=== PATIENT | female | born 1990 | race Caucasian/White ===

== ENCOUNTER 2017-01-20 12:55 | Emergency (ER) | payer MEDICAID ==
[~2017-01-20] VITALS: Ht 154.9 cm; Wt 79.0 kg
[2017-01-20 13:02] VITALS: Ht 154.9 cm; Wt 79.0 kg
[2017-01-20 14:17] LABS: ADD SCAN DIFF NO
[2017-01-20 14:19] LABS: BASOPHIL # 0.1 10^3/ul (0.0-0.1); BASOPHILS % 0.5 % (0.0-2.0); EOSINOPHILS # 0.1 10^3/ul (0.0-0.5); EOSINOPHILS % 0.7 % (0.0-7.0); HEMATOCRIT 37.3 % (37.0-47.0); HEMOGLOBIN 12.7 g/dl (12.0-16.0); LYMPHOCYTES % 29.4 % (15.0-51.0); MEAN PLATELET VOLUME 9.6 fl (7.4-10.4); MONOCYTES % 7.2 % (0.0-11.0); NEUTROPHIL # 8.4 10^3/ul (1.6-7.5); NEUTROPHILS % 61.9 % (39.0-77.0); PLATELET COUNT 361 10^3/UL (140-415); WHITE BLOOD COUNT 13.6 10^3/ul (4.8-10.8)
[2017-01-20 14:21] LABS: ADD UMIC YES; URINE BILIRUBIN (Dip) NEGATIVE (NEGATIVE); URINE BLOOD (Dip) 1+ (NEGATIVE); URINE COLOR LT. YELLOW (YELLOW); URINE GLUCOSE (Dip) NEGATIVE (NEGATIVE); URINE KETONES (Dip) NEGATIVE (NEGATIVE); URINE LEUKOCYTE ESTERASE (Dip) NEGATIVE (NEGATIVE); URINE NITRITE (Dip) NEGATIVE (NEGATIVE); URINE TOTAL PROTEIN (Dip) NEGATIVE (NEGATIVE); URINE UROBILINOGEN (Dip) 0.2 E.U./dL (0.1-1.0)
[2017-01-20 14:36] LABS: BACTERIA,URINE FEW
--- NOTE | 2017-01-20 14:40 | RADRPT ---
PROCEDURE: US Pelvis/OB. CLINICAL INDICATION: vaginal bleeding TECHNIQUE: Multiple sonographic images of the pelvis were obtained utilizing a transabdominal and endovaginal technique. The images were reviewed on a PACS workstation. COMPARISON: None. FINDINGS: There is a small cystic structure within the endometrium measuring 0.3 cm which would correspond to a calculated gestational age of 4 weeks and 6 days. No pole or yolk sac is yet visualized. The ovaries are normal. No abnormal adnexal masses are present. The right ovary measures 2.6 x 1.8 x 2.5 cm. The left ovary measures 2.7 x 1.4 x 2.1 cm. No significant free fluid is present within the pelvis. RPTAT: AA IMPRESSION: Possible early intrauterine at 4 weeks and 6 days. Close followup ultrasound and hCG is recommended. .Rudy Velez MD, Date Time Electronically viewed and signed by .Rudy Velez MD, on 01/20/2017 14:40 .S/
--- NOTE | 2017-01-20 15:42 | ERD ---
ER Documentation Chief Complaint Date/Time DATE: 01/20/17 TIME: 15:35 Chief Complaint PELVIC PAIN , 4 WEEKS PREG , NO VAG BLEED HPI This is a 26-year-old female that presents to the ER with pelvic cramping. Patient states that she found out she was on Monday. Patient went to the clinic on Monday and was told that nothing was seen on the ultrasound. Patient denies any vaginal bleeding. She denies any urinary frequency or dysuria. Patient denies any nausea vomiting or dizziness. A0. Her last normal menstrual period was December 09, 2016. Denies any vaginal discharge. ROS All systems reviewed and are negative except as per history of present illness. PMhx/Soc Medical and Surgical Hx: pt denies Medical Hx, pt denies Surgical Hx Hx Alcohol Use: No Hx Substance Use: No Hx Tobacco Use: No Physical Exam Vitals Vital Signs Date Time Temp Pulse Resp B/P Pulse Ox O2 Delivery O2 Flow Rate FiO2 01/20/17 13:02 97.6 90 18 123/66 100 Physical Exam GENERAL: The patient is well developed and appropriate for usual state of health , in no apparent distress. HEENT: Atraumatic. CHEST: Clear to auscultation bilaterally. There are no rales, wheezes or rhonchi. HEART: Regular rate and rhythm. No murmurs, clicks, rubs or gallops. ABDOMEN: Soft, nontender and nondistended. Good bowel sounds. No rebound or guarding. No gross peritonitis. No gross organomegaly or masses. No Graham sign or McBurney point tenderness. BACK: No midline or flank tenderness. NEURO: Alert and oriented. SKIN: The skin is warm and dry. Result Diagram: 01/20/17 1400 Results 24 hrs Laboratory Tests Test 01/20/17 14:00 Basophils # 0.110^3/ul Basophils % 0.5% Beta HCG, Quantitative 1402.8mIU/ml Eosinophils # 0.110^3/ul Eosinophils % 0.7% Hematocrit 37.3% Hemoglobin 12.7g/dl Lymphocytes # 4.010^3/ul Lymphocytes % 29.4% Mean Corpuscular Hemoglobin 31.0pg Mean Corpuscular Hemoglobin Concent 34.0g/dl Mean Corpuscular Volume 91.0fl Mean Platelet Volume 9.6fl Monocytes # 1.010^3/ul Monocytes % 7.2% Neutrophils # 8.410^3/ul Neutrophils % 61.9% Nucleated Red Blood Cells # 0.010^3/ul Nucleated Red Blood Cells % 0.0/100WBC Platelet Count 11801^3/UL Red Blood Count 4.1010^6/ul Red Cell Distribution Width 12.0% Urine Bacteria FEW Urine Bilirubin NEGATIVE Urine Clarity CLEAR Urine Color LT. YELLOW Urine Epithelial Cells MODERATE Urine Glucose NEGATIVE% Urine Hemoglobin 1+ Urine Ketones NEGATIVE Urine Leukocyte Esterase NEGATIVE Urine Microscopic RBC 5-10/HPF Urine Microscopic WBC 0-2/HPF Urine Nitrite NEGATIVE Urine Specific [place] 1.025 Urine Total Protein NEGATIVE Urine Urobilinogen 0.2 E.U./dL Urine pH 6.0 White Blood Count 13.610^3/ul Procedures/MDM Differential diagnosis: Threatened , missed , incomplete , ectopic , molar , UTI, pyelonephritis. At this time patient is possibly 4 weeks . Suspicion for ectopic is low. Patient's quantitative hCG is below 1500. She does not have any vaginal bleeding at this time. Patient is to follow-up with her PCP within 1-2 days return to ER sooner if pain continues. Patient understands and agrees with plan. Departure Diagnosis: Primary Impression: Pelvic pain during Condition: Stable Patient Instructions: : Body Changes Additional Instructions: Llame al doctor MAANA y magan valerie BURKE PARA DENTRO DE 1-2 SINGH.Dgale a la secretaria que nosotros le instruimos hacer esta burke.Avise o llame si feldman condicin se empeora antes de la burke. Regresa aqui si peor o no mejor. MADHAV TRAMMELL Jan 20, 2017 15:42
== END 2017-01-20 15:46 | disposition home or self-care (01) ==
LOC: FTE 12:55
DX: O26.891 Other specified pregnancy related conditions, first trimester (principal); R10.2 Pelvic and perineal pain
CPT/HCPCS: 36415; 76801; 76817; 81001; 81003; 84702; 85025; 86900; 86901; Z7502

== ENCOUNTER 2017-01-22 19:10 | Emergency (ER) | payer MEDICAID ==
[~2017-01-22] VITALS: Ht 157.5 cm; Wt 81.1 kg
[2017-01-22 19:24] VITALS: Ht 157.5 cm; Wt 81.1 kg
[2017-01-22 21:30] LABS: ADD SCAN DIFF NO
[2017-01-22 21:39] LABS: BASOPHIL # 0.1 10^3/ul (0.0-0.1); BASOPHILS % 0.4 % (0.0-2.0); EOSINOPHILS # 0.1 10^3/ul (0.0-0.5); EOSINOPHILS % 0.8 % (0.0-7.0); HEMATOCRIT 39.3 % (37.0-47.0); HEMOGLOBIN 13.2 g/dl (12.0-16.0); LYMPHOCYTES # 4.6 10^3/ul (0.8-2.9); LYMPHOCYTES % 28.5 % (15.0-51.0); MEAN CORPUSCULAR HEMOGLOBIN 30.6 pg (29.0-33.0); MEAN CORPUSCULAR HGB CONC 33.6 g/dl (32.0-37.0); MEAN CORPUSCULAR VOLUME 91.2 fl (82.0-101.0); MEAN PLATELET VOLUME 9.6 fl (7.4-10.4); MONOCYTES % 6.4 % (0.0-11.0); NEUTROPHIL # 10.3 10^3/ul (1.6-7.5); NEUTROPHILS % 63.6 % (39.0-77.0); PLATELET COUNT 368 10^3/UL (140-415); RED BLOOD COUNT 4.31 10^6/ul (4.20-5.40); RED CELL DISTRIBUTION WIDTH 12.1 % (11.5-14.5); WHITE BLOOD COUNT 16.2 10^3/ul (4.8-10.8)
[2017-01-22 21:46] LABS: ADD UMIC YES; URINE BILIRUBIN (Dip) NEGATIVE (NEGATIVE); URINE BLOOD (Dip) 3+ (NEGATIVE); URINE COLOR LT. YELLOW (YELLOW); URINE GLUCOSE (Dip) NEGATIVE (NEGATIVE); URINE KETONES (Dip) NEGATIVE (NEGATIVE); URINE LEUKOCYTE ESTERASE (Dip) NEGATIVE (NEGATIVE); URINE NITRITE (Dip) NEGATIVE (NEGATIVE); URINE UROBILINOGEN (Dip) 0.2 E.U./dL (0.1-1.0)
[2017-01-22 21:51] LABS: URINE TOTAL PROTEIN (Dip) NEGATIVE (NEGATIVE)
[2017-01-22 21:58] LABS: BACTERIA,URINE FEW; SQUAMOUS EPITHELIAL CELL,UR FEW
--- NOTE | 2017-01-22 22:22 | RADRPT ---
PROCEDURE: US OB. CLINICAL INDICATION: Vaginal bleeding TECHNIQUE: Transabdominal and transvaginal imaging of the pelvis was performed. Images are review ed on a high-resolution PACS workstation. COMPARISON: Ultrasound, 01/20/2017 FINDINGS: Early intrauterine gestational sac is identified. Yolk sac is seen. No pole or cardiac activity is identified at this time. Mean sac diameter is 4.8 mm, corresponding to 5 weeks 0 days gestational age. On the previous exam, mean sac diameter measured 3.4 mm. Bilateral ovaries are unremarkable. No ovarian torsion, adnexal mass or pelvic free fluid is seen. IMPRESSION: 1. Early intrauterine gestational sac, as above. Viability cannot be confirmed at this time. Cont inued sonographic follow-up is recommended. 2. No sonographic evidence of ectopic gestation is seen at this time. RPTAT: HDWR .Burke Smith MD, MD Date Time Electronically viewed and signed by .Burke Smith MD, on 01/22/2017 22:21 .R/
--- NOTE | 2017-01-22 23:12 | ERD ---
ER Documentation Chief Complaint Date/Time DATE: 01/22/17 TIME: 23:07 Chief Complaint VB and pelvic pain X 2 days, 4 weeks . HPI This is a 26-year-old female presents to the ER with vaginal bleeding and pelvic pain. This is been going on for the last 2 days. Patient was seen here 2 days ago. Patient states that the pain has gotten significantly worse. She denies any urinary frequency or dysuria. She denies any vaginal discharge. ROS 12 point review of systems was done, all negative except per HPI. PMhx/Soc Medical and Surgical Hx: pt denies Medical Hx, pt denies Surgical Hx History of Surgery: No Anesthesia Reaction: No Hx Neurological Disorder: No Hx Respiratory Disorders: No Hx Cardiac Disorders: No Hx Psychiatric Problems: No Hx Miscellaneous Medical Probl: No Hx Alcohol Use: No Hx Substance Use: No Hx Tobacco Use: No Physical Exam Vitals Vital Signs Date Time Temp Pulse Resp B/P Pulse Ox O2 Delivery O2 Flow Rate FiO2 01/22/17 19:24 98.1 87 14 129/64 100 Physical Exam GENERAL: The patient is well developed and appropriate for usual state of health , in no apparent distress. HEENT: Atraumatic. CHEST: Clear to auscultation bilaterally. There are no rales, wheezes or rhonchi. HEART: Regular rate and rhythm. No murmurs, clicks, rubs or gallops. ABDOMEN: Soft, nontender and nondistended. Good bowel sounds. No rebound or guarding. No gross peritonitis. No gross organomegaly or masses. No Graham sign or McBurney point tenderness. BACK: No midline or flank tenderness. NEURO: Alert and oriented. SKIN: There is no apparent rash or petechia. The skin is warm and dry. Result Diagram: 01/22/172114 Results 24 hrs Laboratory Tests Test 01/22/17 21:15 Basophils # 0.110^3/ul Basophils % 0.4% Beta HCG, Quantitative 1110.3mIU/ml Eosinophils # 0.110^3/ul Eosinophils % 0.8% Hematocrit 39.3% Hemoglobin 13.2g/dl Lymphocytes # 4.610^3/ul Lymphocytes % 28.5% Mean Corpuscular Hemoglobin 30.6pg Mean Corpuscular Hemoglobin Concent 33.6g/dl Mean Corpuscular Volume 91.2fl Mean Platelet Volume 9.6fl Monocytes # 1.010^3/ul Monocytes % 6.4% Neutrophils # 10.310^3/ul Neutrophils % 63.6% Nucleated Red Blood Cells # 0.010^3/ul Nucleated Red Blood Cells % 0.0/100WBC Platelet Count 35077^3/UL Red Blood Count 4.3110^6/ul Red Cell Distribution Width 12.1% Urine Bacteria FEW Urine Bilirubin NEGATIVE Urine Clarity CLEAR Urine Color LT. YELLOW Urine Glucose NEGATIVE% Urine Hemoglobin 3+ Urine Ketones NEGATIVE Urine Leukocyte Esterase NEGATIVE Urine Microscopic RBC 5-10/HPF Urine Microscopic WBC 2-5/HPF Urine Nitrite NEGATIVE Urine Specific [place] 1.010 Urine Squamous Epithelial Cells FEW Urine Total Protein NEGATIVE Urine Urobilinogen 0.2 E.U./dL Urine pH 7.0 White Blood Count 16.210^3/ul Procedures/MDM Differential diagnosis: Threatened , missed , incomplete , ectopic , molar , UTI, pyelonephritis. At this time the patient's ultrasound is similar to the last visit. Her quantitative hCG is going down. This is likely a threatened . At this time suspicion for ectopic is low. Patient was told to return in 48 hours to the ER she does not have a primary care doctor or REEL REPAIRER. Patient needs to return to ER sooner if symptoms worsen. Plan was discussed with the patient she understands and agrees with plan. Departure Diagnosis: Primary Impression: Threatened Condition: Stable Patient Instructions: Possible Miscarriage (Threatened ) Additional Instructions: Regrese a estas instalaciones dentro de [facility] BR[facility] para un examen de seguimiento.Regrese antes si feldman condicin se empeora. MADHAV TRAMMELL Jan 22, 2017 23:12
[2017-01-22 23:13] VITALS: BP 122/69; PULSE 78; RESP 14; TEMP 98.1
== END 2017-01-22 23:14 | disposition home or self-care (01) ==
LOC: FTE 19:10
DX: O20.0 Threatened abortion (principal); R10.2 Pelvic and perineal pain; Z3A.01 Less than 8 weeks gestation of pregnancy
CPT/HCPCS: 36415; 76801; 76817; 81001; 84702; 85025; Z7502; 81003

== ENCOUNTER 2017-01-25 13:12 | Emergency (ER) | payer MEDICAID ==
[~2017-01-25] VITALS: Ht 154.9 cm; Wt 80.0 kg
[2017-01-25 13:16] VITALS: Ht 154.9 cm; Wt 80.0 kg
[2017-01-25 14:32] LABS: ADD SCAN DIFF NO
[2017-01-25 14:35] LABS: BASOPHIL # 0.1 10^3/ul (0.0-0.1); BASOPHILS % 0.5 % (0.0-2.0); EOSINOPHILS # 0.1 10^3/ul (0.0-0.5); EOSINOPHILS % 0.7 % (0.0-7.0); HEMATOCRIT 38.2 % (37.0-47.0); LYMPHOCYTES # 3.4 10^3/ul (0.8-2.9); LYMPHOCYTES % 27.5 % (15.0-51.0); MEAN CORPUSCULAR HEMOGLOBIN 30.7 pg (29.0-33.0); MEAN CORPUSCULAR VOLUME 90.1 fl (82.0-101.0); MEAN PLATELET VOLUME 9.4 fl (7.4-10.4); MONOCYTE # 0.9 10^3/ul (0.3-0.9); MONOCYTES % 6.9 % (0.0-11.0); NEUTROPHIL # 7.9 10^3/ul (1.6-7.5); NEUTROPHILS % 64.1 % (39.0-77.0); PLATELET COUNT 376 10^3/UL (140-415); RED BLOOD COUNT 4.24 10^6/ul (4.20-5.40); RED CELL DISTRIBUTION WIDTH 11.9 % (11.5-14.5); WHITE BLOOD COUNT 12.3 10^3/ul (4.8-10.8)
[2017-01-25 14:45] LABS: ADD UMIC YES; URINE BILIRUBIN (Dip) NEGATIVE (NEGATIVE); URINE BLOOD (Dip) 3+ (NEGATIVE); URINE COLOR LT. YELLOW (YELLOW); URINE GLUCOSE (Dip) NEGATIVE (NEGATIVE); URINE KETONES (Dip) NEGATIVE (NEGATIVE); URINE LEUKOCYTE ESTERASE (Dip) NEGATIVE (NEGATIVE); URINE NITRITE (Dip) NEGATIVE (NEGATIVE); URINE TOTAL PROTEIN (Dip) NEGATIVE (NEGATIVE); URINE UROBILINOGEN (Dip) 0.2 E.U./dL (0.1-1.0)
--- NOTE | 2017-01-25 14:52 | ERD ---
ER Documentation Chief Complaint Date/Time DATE: 01/25/17 TIME: 14:50 Chief Complaint VAGINAL BLEEDING X 4 DAYS, 5 WEEKS WITH LOWER ABD PAIN HPI This is a 26-year-old female stating that she is 4-5 weeks presenting to the ER complaining of vaginal bleeding for the past 4 days. Patient states that she uses 3 pads per day. Patient states that she feels as if she passed the fetus this morning. She does admit to mild pelvic pain that comes and goes, she denies any current abdominal pain at this moment. She states her last menstrual period was in her third. She denies any dysuria, nausea, vomiting, diarrhea, fever. She denies dizziness, chest pain or shortness of breath ROS All systems reviewed and are negative except as per history of present illness. Allergies Allergies: Coded Allergies: No Known Allergy (Unverified , 01/25/17) PMhx/Soc History of Surgery: No Anesthesia Reaction: No Hx Neurological Disorder: No Hx Respiratory Disorders: No Hx Cardiac Disorders: No Hx Psychiatric Problems: No Hx Miscellaneous Medical Probl: No Hx Alcohol Use: No Hx Substance Use: No Hx Tobacco Use: No Physical Exam Vitals Vital Signs Date Time Temp Pulse Resp B/P Pulse Ox O2 Delivery O2 Flow Rate FiO2 01/25/17 13:16 98.4 82 18 123/60 100 Physical Exam General: well-developed/well-nourished, in no apparent distress, non-toxic appearing HENT: NC/AT, bilateral tympanic membrane is normal with good cone of light, nares patent, oropharynx clear without exudates Eyes: Conjunctiva normal, PERRLA, EOMI Neck: Supple, no lymphadenopathy Pulm: CTA bilaterally, no rales, rhonchi, or wheezing heard CV: Normal S1S2 GI: Soft, non-distended, normal bowel sounds, nontender, negative rosvings, negative talavera's Back: No midline tenderness, no masses, No CVAT Ext: No clubbing, cyanosis, or edema Neuro: Alert and Orientated, gait normal Skin: Intact, normal turgor Psych: Normal mood and mentation Result Diagram: 01/25/17 1420 Results 24 hrs Laboratory Tests Test 01/25/17 14:15 01/25/17 14:20 Urine Bacteria RARE Urine Bilirubin NEGATIVE Urine Clarity CLEAR Urine Color LT. YELLOW Urine Glucose NEGATIVE% Urine Hemoglobin 3+ Urine Ketones NEGATIVE Urine Leukocyte Esterase NEGATIVE Urine Microscopic RBC 0-2/HPF Urine Microscopic WBC 0-2/HPF Urine Nitrite NEGATIVE Urine Specific [place] 1.010 Urine Squamous Epithelial Cells MODERATE Urine Total Protein NEGATIVE Urine Urobilinogen 0.2 E.U./dL Urine pH 6.5 Basophils # 0.110^3/ul Basophils % 0.5% Beta HCG, Quantitative 132.7mIU/ml Eosinophils # 0.110^3/ul Eosinophils % 0.7% Hematocrit 38.2% Hemoglobin 13.0g/dl Lymphocytes # 3.410^3/ul Lymphocytes % 27.5% Mean Corpuscular Hemoglobin 30.7pg Mean Corpuscular Hemoglobin Concent 34.0g/dl Mean Corpuscular Volume 90.1fl Mean Platelet Volume 9.4fl Monocytes # 0.910^3/ul Monocytes % 6.9% Neutrophils # 7.910^3/ul Neutrophils % 64.1% Nucleated Red Blood Cells # 0.010^3/ul Nucleated Red Blood Cells % 0.0/100WBC Platelet Count 01454^3/UL Red Blood Count 4.2410^6/ul Red Cell Distribution Width 11.9% White Blood Count 12.310^3/ul Procedures/MDM This is a 26-year-old female stating that she is 4-5 weeks presenting to the ER complaining of vaginal bleeding for the past 4 days. Patient states that she uses 3 pads per day, she describes the blood as light. Patient states that she feels as if she passed the fetus this morning. On examination patient appears well, she has no pelvic pain. Patient was seen here on January 22 and had a workup, patient's beta hCG level was 1110 and the ultrasound said it early intrauterine gestational sac and viability cannot be confirmed at this time. Patient presents today. Workup was done. Lab work was drawn. CBC did not show any evidence of leukocytosis or anemia. UA did not show any evidence of urinary tract infection. Patient patient's beta hCG level dropped to 110, which is likely due to a miscarriage. Ultrasound was done and radiologist stated: 1. Single small intrauterine gestational sac measuring 0.39 cm indicating a menstrual age of 5 weeks 1 day. Expected date of delivery is 09/26/2017. 2. It is too early to visualize pole. Follow-up ultrasound in 10 days is advised. I have discussed this with the patient that she will need to follow-up with her TOOL PROCUREMENT COORDINATOR and to return to the ER for any worsening symptoms. I discussed that she is not able to follow-up with her TOOL PROCUREMENT COORDINATOR in 2 days to return here for a follow-up. Patient is stable for discharge. She understands and agrees with this plan Departure Diagnosis: Primary Impression: Threatened Condition: Stable HECTOR PRABHAKAR PA-C Jan 25, 2017 14:52
--- NOTE | 2017-01-25 14:55 | RADRPT ---
PROCEDURE: OB Ultrasound. CLINICAL INDICATION: Positive test. Vaginal bleeding. TECHNIQUE: Ultrasound of the pelvis was performed with transabdominal and transvaginal sonography in the axial and sagittal planes. COMPARISON: 01/22/2017. FINDINGS: There is a single small intrauterine gestational sac with a mean sac diameter of 0.39 cm indicating a menstrual age of 5 weeks 1 day. It is too early to visualize pole. Yolk sac may be present . The uterus measures 8.2 x 4.0 x 5.2 cm. The right ovary appears normal measuring 2.3 x 1.6 x 1.8 cm. The left ovary appears normal measuring 2.6 x 1.6 x 2.0 cm. Color Doppler and pulsed Doppler sonography demonstrate normal flow to the ovaries. There is no other pelvic mass or free fluid. IMPRESSION: 1. Single small intrauterine gestational sac measuring 0.39 cm indicating a menstrual age of 5 week s 1 day. Expected date of delivery is 09/26/2017. 2. It is too early to visualize pole. Follow-up ultrasound in 10 days is advised. RPTAT: QQ .Hussein Lincoln MD, MD Date Time Electronically viewed and signed by .Hussein Lincoln MD, on 01/25/2017 14:55 .R/
[2017-01-25 15:02] LABS: BACTERIA,URINE RARE; SQUAMOUS EPITHELIAL CELL,UR MODERATE; URINE RBCS 0-2 /HPF (0)
[2017-01-25 16:01] VITALS: BP 126/59; PULSE 78; RESP 18; TEMP 98.4
== END 2017-01-25 16:02 | disposition home or self-care (01) ==
LOC: FTE 13:12
DX: O20.0 Threatened abortion (principal); Z3A.01 Less than 8 weeks gestation of pregnancy
CPT/HCPCS: 36415; 76801; 76817; 81001; 84702; 85025; 86900; 86901; Z7502; 81003